=== PATIENT | female | born 1965 | race Caucasian/White ===

== ENCOUNTER 2019-06-02 07:45 | Day surgery (SDC) | payer OTHER ==
[~2019-06-02] VITALS: Ht 170.2 cm; Wt 93.6 kg
[2019-06-02 08:29] VITALS: BP 140/78
[2019-06-02] MEDS ORDERED: COSYNTROPIN 0.25 MG VIAL IVP ONE (09:00)
--- NOTE | 2019-06-02 10:25 | NUR ---
DC PT DC HOME AFTER ACTH STIMULATION TEST , PT TOLERATED MEDICATION ADMINISTERED FOR TEST WITHOUT ADVERSE REACTIONS. PIV REMOVED AFTER TEST COMPLETED TO RIGHT HAND, CATHETER INTAT, SITE ASYMPTOMATIC. PATIENT AWAKE AND ALERT , DENIED ANY PAIN OR DISCOMFORTS.
== END 2019-06-02 10:25 | disposition home or self-care (01) ==
LOC: RAH 07:45
PROVIDERS: ATTEND Family Medicine
DX: E27.8 Other specified disorders of adrenal gland (principal)
CPT/HCPCS: 36415; 82533 ×3; 96374; A4606; J0834